=== PATIENT | female | born 1980 | race Caucasian/White ===

== ENCOUNTER 2016-09-16 15:12 | Emergency (ER) | payer OTHER, SELFPAY ==
[2016-09-16 16:23] VITALS: O2SAT 98
[2016-09-16] MEDS ORDERED: Sodium Chloride 0.9% 1,000 ML IV ONE (18:55)
[2016-09-16] MEDS ORDERED: Sodium Chloride 0.9% 1,000 ML ONE (19:37)
[2016-09-16 19:38] LABS: BASO % 0.6 % (0.0-2.0); EOS # 0.1 K/uL (0.0-0.7); EOS % 1.2 % (0.0-4.0); HEMATOCRIT 37.2 % (34.0-47.0); LYMPH # 2.4 K/uL (1.0-4.3); LYMPH % 27.7 % (20.0-40.0); MEAN CORPUSCULAR HEMOGLOBIN 30.6 pg (27.0-31.0); MEAN CORPUSCULAR HGB CONC 33.2 g/dL (33.0-37.0); MEAN PLATELET VOLUME 8.3 fL (7.2-11.7); MONO # 0.7 K/uL (0.0-0.8); MONO % 7.7 % (0.0-10.0); NRBC % 0.1 % (0.0-2.0); RED CELL DISTRIBUTION WIDTH 12.8 % (11.5-14.5); WHITE BLOOD COUNT 8.8 K/uL (4.8-10.8)
[2016-09-16 19:43] LABS: CHLORIDE 99 mmol/L (98-107); POTASSIUM 3.7 mmol/L (3.6-5.2); SODIUM 139 mmol/L (132-148)
[2016-09-16 19:45] LABS: BILIRUBIN,TOTAL 0.3 mg/dL (0.2-1.3); GFR AFRICAN-AMERICAN > 60
[2016-09-16 19:46] LABS: ALB/GLOB RATIO 1.3 (1.0-2.1); ALKALINE PHOSPHATASE 40 U/L (38-126); ALT/SGPT 23 U/L (9-52); AST/SGOT 26 U/L (14-36); BLOOD UREA NITROGEN 9 mg/dL (7-17); CALCIUM 8.5 mg/dl (8.6-10.4); CARBON DIOXIDE 26 mmol/L (22-30); GLUCOSE,RANDOM 106 mg/dL (65-105); TOTAL PROTEIN 7.6 g/dL (6.3-8.3)
--- NOTE | 2016-09-16 20:17 | C.PDOC ---
Time Seen by Provider: 09/16/16 18:47 Chief Complaint (Nursing): Chest Pain History Per: Patient, Family Onset/Duration Of Symptoms: Days (1) Current Symptoms Are (Timing): Still Present Severity: Moderate Associated Symptoms: Nausea (and vomiting). denies: Dyspnea, Diaphoresis, Syncope Modifying Factors: Other Indicated Below Alleviating Factors: None Additional History Per: Prior Records Past Medical History Reviewed: Historical Data, Nursing Documentation, Vital Signs Vital Signs: Last Vital Signs Temp 98.1 F 09/16/16 16:21 Pulse 68 09/16/16 18:46 Resp 18 09/16/16 16:21 BP 122/72 09/16/16 16:21 Pulse Ox 98 09/16/16 16:21 - Medical History PMH: Asthma, Pneumonia Surgical History: Appendectomy Family History: States: Unknown Family Hx - Social History Hx Tobacco Use: No Hx Alcohol Use: No Hx Substance Use: No - Immunization History Hx Tetanus Toxoid Vaccination: No Hx Influenza Vaccination: No Hx Pneumococcal Vaccination: No Review Of Systems Except As Marked, All Systems Reviewed And Found Negative. Constitutional: Negative for: Fever, Weakness Cardiovascular: Positive for: Chest Pain Respiratory: Negative for: Shortness of Breath, Hemoptysis Gastrointestinal: Positive for: Nausea, Vomiting. Negative for: Abdominal Pain , Diarrhea, Constipation, Melena, Hematochezia, Hematemesis Genitourinary: Negative for: Dysuria Musculoskeletal: Negative for: Neck Pain, Back Pain, Leg Pain Skin: Negative for: Rash Neurological: Negative for: Weakness, Numbness, Seizures, Altered Mental Status , Headache Physical Exam - Physical Exam Appears: Non-toxic, No Acute Distress Skin: Normal Color, Warm, Dry, No Rash Head: Atraumatic, Normacephalic Eye(s): bilateral: PERRL, EOMI Neck: Normal ROM, Supple Chest: Symmetrical, No Deformity, No Subcutaneous Emphysema Cardiovascular: Rhythm Regular Respiratory: Normal Breath Sounds, No Accessory Muscle Use Gastrointestinal/Abdominal: Soft, No Tenderness Back: No CVA Tenderness Extremity: Normal ROM, No Pedal Edema, No Calf Tenderness Neurological/Psych: Oriented x3, Normal Motor, Normal Sensation ED Course And Treatment - Laboratory Results Result Diagrams: 09/16/16 19:32 09/16/16 19:32 Lab Interpretation: No Acute Changes Urine POC: Negative ECG: Interpreted By Me, Viewed By Me ECG Rhythm: Sinus Rhythm ECG Interpretation: No Acute Changes Rate From EC O2 Sat by Pulse Oximetry: 98 Pulse Ox Interpretation: Normal - Radiology CXR: Interpreted by Me, Viewed By Me CXR Interpretation: Yes: No Acute Disease Progress Note: Symptoms resolved after meds. Reassessment Condition: Improved Progress - Interventions Interventions:: Observation, Intravenous fluid - Medications Administered Intravenous: Antiemetic, H-2 portia - Data Reviewed Data Reviewed: Lab, Diagnostic imaging, EKG, Old records - Patient Status Patient status: Mostly improved - Continuity of Care Discussed patient case with:: Patient, Family-HIPPA compliant, ED Nurse - Patient Plan Patient Plan: Discharge, F/U with PCP Medical Decision Making Medical Decision Making: PERC rule negative Disposition Counseled Patient/Family Regarding: Studies Performed, Diagnosis, Need For Followup, Rx Given - Disposition Referrals: [facility] at [facility] [Outside] Disposition: HOME/ ROUTINE Disposition Time: 20:18 Condition: IMPROVED Additional Instructions: Follow up in the clinic for further evaluation and treatment. Return to the ER if you develop shortness of breath, fever, abdominal pain, dizziness, worsening of symptoms or if you have any other concerns. Prescriptions: Famotidine [Pepcid] 20 mg PO BID #30 tab Instructions: Gastroesophageal Reflux Disease (ED) Print Language: SYRIAN - Clinical Impression Clinical Impression: Chest pain, Vomiting
[2016-09-16 20:32] VITALS: BP 104/68; PULSE 74; RESP 16; TEMP 98.9
--- NOTE | 2016-09-17 09:52 | RAD ---
HISTORY: Chest pain COMPARISON: Comparison is made to the previous study dated 03/03/2020 TECHNIQUE: Chest PA and lateral FINDINGS: LUNGS: No active pulmonary disease. PLEURA: No significant pleural effusion identified. No pneumothorax apparent. CARDIOVASCULAR: Normal. OSSEOUS STRUCTURES: No significant abnormalities. VISUALIZED UPPER ABDOMEN: Normal. OTHER FINDINGS: None. IMPRESSION: No active disease.
--- NOTE | 2016-09-24 12:18 | CARD ---
APPROVED REPORT EKG Measurement Heart [id number] <Conclusion> Normal sinus rhythm Normal ECG
== END 2016-09-16 20:31 | disposition home or self-care (01) ==
LOC: C.ER 15:12
DX: R07.9 Chest pain, unspecified (principal)
CPT/HCPCS: 71020; 80053; 83690; 84484; 84703; 85025; 93005; 96361; 96374; 96375; 99284; G0480; J2765; J7040

== ENCOUNTER 2016-12-05 22:35 | Emergency (ER) | payer SELFPAY ==
[2016-12-05 23:01] VITALS: BP 138/77; PULSE 92; RESP 18; TEMP 98.3; O2SAT 97
[2016-12-05] MEDS ORDERED: Oxycodone/Acetaminophen 5/325 mg Tab PO STA (23:08)
[2016-12-05] MEDS ORDERED: Oxycodone/Acetaminophen 5/325 mg Tab ONE (23:10)
--- NOTE | 2016-12-05 23:42 | C.PDOC ---
History Of Present Illness 36 y/o female c/o left wrist pain status post trip and fall in the kitchen earlier today. Denies changes in sensation. Patient notes she is left hand dominant. Time Seen by Provider: 12/05/16 22:57 Chief Complaint (Nursing): Finger,Hand,&Wrist History Per: Patient History/Exam Limitations: no limitations Onset/Duration Of Symptoms: Hrs Current Symptoms Are (Timing): Still Present Quality: "Pain" Exacerbating Factor(s): Movement Recent travel outside of the [place]: No Past Medical History Reviewed: Historical Data, Nursing Documentation, Vital Signs Vital Signs: Last Vital Signs Temp 98.3 F 12/05/16 22:57 Pulse 92 H 12/05/16 22:57 Resp 18 12/05/16 22:57 BP 138/77 12/05/16 22:57 Pulse Ox 97 12/06/16 00:05 - Medical History PMH: Asthma, Pneumonia Surgical History: Appendectomy Family History: States: Unknown Family Hx - Social History Hx Tobacco Use: No Hx Alcohol Use: Yes Hx Substance Use: No - Immunization History Hx Tetanus Toxoid Vaccination: No Hx Influenza Vaccination: No Hx Pneumococcal Vaccination: No Review Of Systems Except As Marked, All Systems Reviewed And Found Negative. Constitutional: Negative for: Fever, Chills Musculoskeletal: Positive for: Other (left wrist pain ) Skin: Negative for: Rash Neurological: Negative for: Weakness, Numbness Physical Exam - Physical Exam Appears: Non-toxic, No Acute Distress Skin: Normal Color, Warm, Dry Head: Atraumatic, Normacephalic Eye(s): bilateral: Normal Inspection, EOMI Nose: Normal Oral Mucosa: Moist Extremity: Tenderness (tenderness to dorsal aspect of left wrist), Capillary Refill (< 2 sec. ), No Deformity, No Swelling, Other (decreased ROM left wrist secondary to pain ) Extremity: Bilateral: Normal Color And Temperature Pulses: Left Radial: Normal, Right Radial: Normal Neurological/Psych: Oriented x3, Normal Speech, Normal Cognition, Normal Motor, Normal Sensation ED Course And Treatment O2 Sat by Pulse Oximetry: 97 (RA) Pulse Ox Interpretation: Normal - Other Rad Left Wrist XR X-Ray: Interpreted by Me Interpretation: negative for fx or dislocation Progress Note: Treated with Percocet. Left wrist x-ray ordered and reviewed, negative for fx or dislocation. Wrist immobilizer applied by CP. Pt neurovascularly intact on re-evaluation, radial pulses normal. Instructed RICE and follow up with ortho. . Disposition - Disposition Referrals: Morgan Joel MD [Staff Provider] - Disposition: HOME/ ROUTINE Disposition Time: 23:40 Condition: STABLE Additional Instructions: Rest, ice and elevate the area. Follow up with bone doctor in 1-2 days for re- evaluation. Descansar, hielo y elevar el cesar. Seguir con el mdico de huesos en 1-2 magdaleno para la re-evaluacin. 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 - Scribe Statement The provider has reviewed the documentation as recorded by the Scribe Pedro Fitch All medical record entries made by the Scribe were at my direction and personally dictated by me. I have reviewed the chart and agree that the record accurately reflects my personal performance of the history, physical exam, medical decision making, and the department course for this patient. I have also personally directed, reviewed, and agree with the discharge instructions and disposition.
--- NOTE | 2016-12-06 10:13 | RAD ---
Left wrist three views History: Trauma. Comparison: None available. Findings: No evidence of acute displaced fracture or dislocation. Impression: Negative acute. If pain persists, consider MRI.
== END 2016-12-06 00:10 | disposition home or self-care (01) ==
LOC: C.ER 22:35
DX: S63.502A Unspecified sprain of left wrist, initial encounter (principal); W01.0XXA Fall on same level from slipping, tripping and stumbling without subsequent striking against object, initial encounter; Y92.000 Kitchen of unspecified non-institutional (private) residence as the place of occurrence of the external cause

== ENCOUNTER 2016-12-22 15:32 | Emergency (ER) | payer OTHER ==
[2016-12-22 15:47] VITALS: RESP 18; TEMP 98.1; BMI 30.7
[2016-12-22] MEDS ORDERED: Albuterol 0.083% Inhal Sol (2.5 mg/3 mL) UD INH STA (16:02)
[2016-12-22] MEDS ORDERED: Sodium Chloride 0.9% 500 ML IV ONE (16:02)
--- NOTE | 2016-12-22 16:40 | C.PDOC ---
History Of Present Illness 36 y/o female hx of asthma presents to the ED with complaints of cough with green sputum, loss of voice and sore throat x5 days. Denies fever, chills, cp , sob, wheezing. or any other complaints. No sick contacts, nonsmoker. Time Seen by Provider: 12/22/16 15:56 Chief Complaint (Nursing): ENT Problem History Per: Patient History/Exam Limitations: no limitations Onset/Duration Of Symptoms: Days Current Symptoms Are (Timing): Still Present Location Of Pain: Throat Sick Contacts (Context): None Associated Symptoms: Sore Throat, Cough. denies: Fever, Chills Severity: Mild Recent travel outside of the [place]: No Past Medical History Reviewed: Historical Data, Nursing Documentation, Vital Signs Vital Signs: Last Vital Signs Temp 98.1 F 12/22/16 15:45 Pulse 75 12/22/16 16:48 Resp 18 12/22/16 16:48 BP 128/75 12/22/16 16:48 Pulse Ox 99 12/22/16 22:07 - Medical History PMH: Asthma, Pneumonia Surgical History: Appendectomy Family History: States: Unknown Family Hx - Social History Hx Tobacco Use: No Hx Alcohol Use: No Hx Substance Use: No - Immunization History Hx Tetanus Toxoid Vaccination: No Hx Influenza Vaccination: No Hx Pneumococcal Vaccination: No Review Of Systems Constitutional: Negative for: Fever, Chills ENT: Positive for: Throat Pain Cardiovascular: Negative for: Chest Pain, Palpitations Respiratory: Positive for: Cough, Sputum (green). Negative for: Shortness of Breath Gastrointestinal: Negative for: Nausea, Vomiting, Abdominal Pain Physical Exam - Physical Exam Appears: Non-toxic, No Acute Distress Skin: Warm, Dry, No Rash Head: Atraumatic, Normacephalic Ear(s): Bilateral: Normal Nose: Normal, No Discharge Oral Mucosa: Moist Tongue: Normal Appearing Throat: Normal, No Erythema, No Exudate, Other (voice hoarse, no tracheal tenderness) Neck: Normal, Normal ROM, Supple Lymphatic: No Adenopathy Chest: No Tenderness Cardiovascular: Rhythm Regular, No Murmur Respiratory: Decreased Breath Sounds (left base), No Rales, No Rhonchi, No Wheezing Gastrointestinal/Abdominal: Normal Exam, Soft, No Tenderness Neurological/Psych: Oriented x3, Normal Speech ED Course And Treatment O2 Sat by Pulse Oximetry: 99 (RA) Pulse Ox Interpretation: Normal Medical Decision Making Medical Decision Making: pt with hx asthma, c/o dec voice with sore throat, cough green sputum, x 5 days. , no fever. will d/c with zpak and albuterol mdi, f/u med clinic. Disposition Counseled Patient/Family Regarding: Diagnosis, Need For Followup, Rx Given - Disposition Referrals: [facility] at [facility] [Outside] Disposition: HOME/ ROUTINE Disposition Time: 16:40 Condition: GOOD Additional Instructions: Paxton grgaras con agua salada caliente 3-4 veces al da. Bajadero los antibiticos segn lo prescrito. Puede utilizar Tylenol o ibuprofen para el dolor o la fiebre. Utilizar el inhalador del albutrol 2 inhalaciones cada 6 horas para la opresin de pecho. Tos marshall o falta de aliento. Seguimiento en la [place] M dica en 1-2 magdaleno. Vuelva al ER para cualquier empeoramiento de los sntomas. Susurro no recomendado ;. Sugerencia de descanso de voz. Prescriptions: Albuterol HFA [Ventolin HFA 90 mcg/actuation (8 g)] 2 puff IH Q6 #1 inhaler Azithromycin [Z-Jason] 250 mg PO DAILY #6 tab Instructions: Laryngitis (ED), Upper Respiratory Infection (ED) Print Language: BELGIAN - Clinical Impression Clinical Impression: Laryngitis, Upper respiratory infection - PA / RESPIRATORY THERAPY TECHNICIAN / Resident Statement MD/DO has reviewed & agrees with the documentation as recorded. - Scribe Statement The provider has reviewed the documentation as recorded by the Vania Amin All medical record entries made by the Vania were at my direction and personally dictated by me. I have reviewed the chart and agree that the record accurately reflects my personal performance of the history, physical exam, medical decision making, and the department course for this patient. I have also personally directed, reviewed, and agree with the discharge instructions and disposition.
[2016-12-22 16:48] VITALS: BP 128/75; PULSE 75
[2016-12-22 16:54] VITALS: O2SAT 99
== END 2016-12-22 16:50 | disposition home or self-care (01) ==
LOC: C.ER 15:32
DX: J04.0 Acute laryngitis (principal); J02.9 Acute pharyngitis, unspecified

== ENCOUNTER 2017-02-24 16:03 | Emergency (ER) | payer OTHER ==
[2017-02-24 16:04] VITALS: BMI 30.7
[2017-02-24 16:49] VITALS: O2SAT 98
[2017-02-24] MEDS ORDERED: Albuterol-Ipratrop 3 mg / 0.5 (3 ml) UD ONE ×2 (17:15→17:27)
[2017-02-24] MEDS ORDERED: Albuterol 0.083% Inhal Sol (2.5 mg/3 mL) UD INH STA (17:37)
[2017-02-24] MEDS ORDERED: Albuterol 0.083% Inhal Sol (2.5 mg/3 mL) UD IH STA ×2 (17:38)
--- NOTE | 2017-02-24 17:38 | C.PDOC ---
History Of Present Illness 36 y/o female, with PMHx of Asthma, presents to the ED for evaluation of cough that is productive of green phlegm which has been worsening for the past 4 days. Patient notes her symptoms have been ongoing for approx 2 months and reports shortness of breath as well as trouble sleeping due to her symptoms. Patient was unable to find relief from using Ventolin inhaler. Patient denies fever, chills, chest pain, hemoptysis. Time Seen by Provider: 02/24/17 16:50 Chief Complaint (Nursing): Cough, Cold, Congestion History Per: Patient History/Exam Limitations: no limitations Onset/Duration Of Symptoms: Days, Persistent (around 2 months ) Current Symptoms Are (Timing): Worse Associated Symptoms: Cough, Sputum (green ). denies: Fever, Chills Ear Symptoms: Bilateral: None Severity: Mild Additional History Per: Patient Past Medical History Reviewed: Historical Data, Nursing Documentation, Vital Signs Vital Signs: Last Vital Signs Temp 97.5 F L 02/24/17 18:39 Pulse 93 H 02/24/17 18:39 Resp 18 02/24/17 18:39 BP 114/80 02/24/17 18:39 Pulse Ox 98 02/24/17 23:32 - Medical History PMH: Asthma, Pneumonia Surgical History: Appendectomy Family History: States: No Known Family Hx - Social History Hx Tobacco Use: No Hx Alcohol Use: No Hx Substance Use: No - Immunization History Hx Tetanus Toxoid Vaccination: No Hx Influenza Vaccination: No Hx Pneumococcal Vaccination: No Review Of Systems Except As Marked, All Systems Reviewed And Found Negative. Constitutional: Negative for: Fever, Chills Cardiovascular: Negative for: Chest Pain, Palpitations Respiratory: Positive for: Cough, Shortness of Breath, Sputum (green) Gastrointestinal: Negative for: Nausea, Vomiting, Abdominal Pain, Diarrhea Skin: Negative for: Rash Physical Exam - Physical Exam Appears: Well, Non-toxic, No Acute Distress, Other (speaking in full sentences) Skin: Normal Color, Warm, Dry, No Rash Eye(s): bilateral: Normal Inspection Oral Mucosa: Moist Throat: Normal, No Erythema, No Exudate Neck: Supple Chest: Symmetrical, No Tenderness Cardiovascular: Rhythm Regular Respiratory: No Accessory Muscle Use, No Rales, No Rhonchi, Wheezing ( expiratory wheezing B/L) Back: Normal Inspection Extremity: Normal ROM, No Pedal Edema, No Calf Tenderness Neurological/Psych: Oriented x3 Gait: Steady ED Course And Treatment O2 Sat by Pulse Oximetry: 98 (on RA) Pulse Ox Interpretation: Normal - Other Rad CXR X-Ray: Interpreted by Me, Viewed By Me Interpretation: no infiltrates/effusions Progress Note: Patient given PO Prednisone, nebulizer treatments. CXR ordered and reviewed - negative for infiltrates. Due to asthma history, patient treated with PO Azithromycin. Reevaluation Time: 18:45 Reassessment Condition: Improved (On reassessment, patient states she feels significantly better. On exam, she has good air entry B/L without wheezing/ accessory muscle use. Peak flow done by me is 300 (markedly improved). Pox 98 % on RA. Patient given Rxs for prednisone, azithromycin, tessalon and albuterol inhaler. She was instructed to follow up with PMD/clinic in 1-2 days , and understands she should return to ED if symptoms worsen.) Disposition Counseled Patient/Family Regarding: Studies Performed, Diagnosis, Need For Followup, Rx Given - Disposition Referrals: [facility] at [facility] [Outside] Disposition: HOME/ ROUTINE Disposition Time: 18:45 Condition: STABLE Additional Instructions: SEGUIMIENTO CON LOREDO DOCTOR / CLNICA EN 1-2 [place] USE [employer] SEGN LO DIRIGIDO DEVUELVA A LA SONALI DE EMERGENCIA SI LOS SNTOMAS EMPEORARAN Prescriptions: Albuterol HFA [Ventolin HFA 90 mcg/actuation (8 g)] 0.09 mg IH Q4 PRN #1 puff PRN Reason: Wheezing Azithromycin [Zithromax] 250 mg PO DAILY #4 tab Benzonatate [Tessalon Perles] 100 mg PO BID PRN #15 sgl PRN Reason: Cough predniSONE [predniSONE Tab] 60 mg PO DAILY #12 tab Instructions: Asthma (ED), Acute Bronchitis (ED) Forms: [employer] (Frisian) Print Language: ALBANIAN - POA Present On Arrival: None - Clinical Impression Clinical Impression: Asthma, Bronchitis - Scribe Statement The provider has reviewed the documentation as recorded by the Scribe (Esther Baires) Provider Attestation: All medical record entries made by the Scribe were at my direction and personally dictated by me. I have reviewed the chart and agree that the record accurately reflects my personal performance of the history, physical exam, medical decision making, and the department course for this patient. I have also personally directed, reviewed, and agree with the discharge instructions and disposition.
[2017-02-24 18:40] VITALS: BP 114/80; PULSE 93; RESP 18; TEMP 97.5
--- NOTE | 2017-02-24 18:40 | RAD ---
PROCEDURE: CHEST RADIOGRAPH, 1 VIEW HISTORY: Shortness of breath COMPARISON: 09/16/2016 FINDINGS: LUNGS: Mild venous congestion. Right infrahilar prominence. PLEURA: No pneumothorax or pleural fluid seen. CARDIOVASCULAR: Normal. OSSEOUS STRUCTURES: No significant abnormalities. VISUALIZED UPPER ABDOMEN: Normal. OTHER FINDINGS: None. IMPRESSION: Mild venous congestion. Right infrahilar prominence.
== END 2017-02-24 18:54 | disposition home or self-care (01) ==
LOC: C.ER 16:03
DX: J45.909 Unspecified asthma, uncomplicated (principal)

== ENCOUNTER 2017-02-27 16:17 | Emergency (ER) | payer OTHER ==
[2017-02-27 16:17] VITALS: BMI 30.7
[2017-02-27 16:26] VITALS: TEMP 97.7
--- NOTE | 2017-02-27 18:08 | C.PDOC ---
History Of Present Illness 36 y/o female, with PMHx of asthma, presents to the ED for evaluation of shortness of breath and cough which worsened earlier today. Earlier today at home, patient began coughing, experiencing shortness of breath, and had difficulty speaking. She also feels weakness when trying to speak, mild headache , nausea, and anterior chest wall pain which is worse when coughing. Patient was seen in [facility] on 02/24. She underwent CXR during her visit, which was unremarkable. Patient was discharged with Rx Zithromax. Patient notes she feels tremulous (probably caused by medication). Patient denies fever, chills, abdominal pain. Time Seen by Provider: 02/27/17 17:45 Chief Complaint (Nursing): Shortness Of Breath History Per: Patient History/Exam Limitations: no limitations Onset/Duration Of Symptoms: Days Current Symptoms Are (Timing): Still Present Quality: denies: "Pain" Current Respiratory Medications: See Home Med List Associated Symptoms: Chest Pain (associated with cough ), Productive Cough. denies: Fever, Chills Additional History Per: Patient Past Medical History Reviewed: Historical Data, Nursing Documentation, Vital Signs Vital Signs: Last Vital Signs Temp 97.7 F 02/27/17 16:22 Pulse 61 02/27/17 18:29 Resp 18 02/27/17 18:29 BP 101/58 L 02/27/17 18:29 Pulse Ox 98 02/27/17 18:49 - Medical History PMH: Asthma, Pneumonia Denies: Pancreatitis, Chronic Kidney Disease Surgical History: Appendectomy Family History: States: Unknown Family Hx - Social History Hx Tobacco Use: No Hx Alcohol Use: No Hx Substance Use: No - Immunization History Hx Tetanus Toxoid Vaccination: No Hx Influenza Vaccination: No Hx Pneumococcal Vaccination: No Review Of Systems Constitutional: Positive for: Weakness. Negative for: Fever, Chills Cardiovascular: Positive for: Chest Pain (worse with cough ) Respiratory: Positive for: Cough, Shortness of Breath, Sputum Gastrointestinal: Positive for: Nausea. Negative for: Abdominal Pain Neurological: Positive for: Headache (mild) Physical Exam - Physical Exam Appears: Non-toxic, No Acute Distress Skin: Normal Color, Warm, Dry Head: Atraumatic, Normacephalic Eye(s): bilateral: Normal Inspection Oral Mucosa: Moist Neck: Supple Chest: Symmetrical, No Deformity, No Tenderness Cardiovascular: Rhythm Regular, No Murmur Respiratory: Normal Breath Sounds, No Rales, No Rhonchi, No Wheezing Gastrointestinal/Abdominal: Soft, No Tenderness, No Guarding, No Rebound Back: Normal Inspection Extremity: Normal ROM, Capillary Refill (less than 2 seconds ) Neurological/Psych: Oriented x3, Normal Speech, Normal Cognition Gait: Steady ED Course And Treatment O2 Sat by Pulse Oximetry: 98 Medical Decision Making Medical Decision Making: Impression: 35 y/o female with cough Progress: On reassessment, patient is resting comfortably, showing on signs of respiratory distress and is stable for discharge. Patient is advised to continue taking her medicine as prescribed and follow up with her PMD within 1- 2 days for further evaluation. Disposition - Disposition Referrals: [facility] at [facility] [Outside] Disposition: HOME/ ROUTINE Disposition Time: 18:40 Condition: STABLE Instructions: Asthma (ED) Forms: Gen Discharge Inst Bhutanese, [employer] (Bhutanese) - POA Present On Arrival: None - Clinical Impression Clinical Impression: Cough - Scribe Statement The provider has reviewed the documentation as recorded by the Scribe (Esther Baires) Provider Attestation: All medical record entries made by the Scribe were at my direction and personally dictated by me. I have reviewed the chart and agree that the record accurately reflects my personal performance of the history, physical exam, medical decision making, and the department course for this patient. I have also personally directed, reviewed, and agree with the discharge instructions and disposition.
[2017-02-27 18:32] VITALS: BP 101/58; PULSE 61; RESP 18
[2017-02-27 18:40] VITALS: O2SAT 98
== END 2017-02-27 18:49 | disposition home or self-care (01) ==
LOC: C.ER 16:17
DX: R05 Cough (principal)

== ENCOUNTER 2018-04-02 16:12 | Emergency (ER) | payer OTHER ==
[2018-04-02 16:13] VITALS: BMI 30.7
[2018-04-02 16:29] VITALS: BP 111/68; PULSE 67; RESP 17; TEMP 98.5; O2SAT 98
[2018-04-02] MEDS ORDERED: Lidocaine 5% Patch TD STA (17:06)
--- NOTE | 2018-04-02 17:14 | C.PDOC ---
History Of Present Illness 37 y/o female presents to the ER for evaluation of lower back pain which has been present since last night. Patient states that the pain is worse with movement. Patient reports that she has history of similar episode 2 years ago. Denies having urinary frequency, dysuria, urinary or bowel incontinence, changes in sensation, and weakness. Time Seen by Provider: 04/02/18 16:32 Chief Complaint (Nursing): Back Pain History Per: Patient History/Exam Limitations: no limitations Onset/Duration Of Symptoms: Days Current Symptoms Are (Timing): Still Present Past Medical History Reviewed: Historical Data, Nursing Documentation, Vital Signs Vital Signs: Last Vital Signs Temp 98.5 F 04/02/18 16:27 Pulse 67 04/02/18 16:27 Resp 17 04/02/18 16:27 BP 111/68 04/02/18 16:27 Pulse Ox 98 04/02/18 16:27 - Medical History PMH: Asthma, Pneumonia Denies: Pancreatitis, Chronic Kidney Disease Surgical History: Appendectomy Family History: States: No Known Family Hx - Social History Hx Tobacco Use: No Hx Alcohol Use: Yes Hx Substance Use: No - Immunization History Hx Tetanus Toxoid Vaccination: No Hx Influenza Vaccination: No Hx Pneumococcal Vaccination: No Review Of Systems Except As Marked, All Systems Reviewed And Found Negative. Genitourinary: Negative for: Frequency, Incontinence Musculoskeletal: Positive for: Back Pain (lower back pain) Neurological: Negative for: Weakness, Numbness Physical Exam - Physical Exam Appears: Non-toxic, No Acute Distress Skin: Normal Color, Warm, Dry Head: Atraumatic, Normacephalic Eye(s): bilateral: Normal Inspection, EOMI Nose: Normal Oral Mucosa: Moist Neck: Normal ROM, Supple Chest: Symmetrical Cardiovascular: Rhythm Regular Respiratory: Normal Breath Sounds, No Rales, No Rhonchi, No Wheezing Back: No CVA Tenderness, No Vertebral Tenderness, Paraspinal Tenderness (b/ l paralumbar tenderness) Extremity: Normal ROM, Tenderness (parasacral tenderness), No Swelling Neurological/Psych: Oriented x3, Normal Speech, Normal Motor, Normal Sensation (no saddle anesthesia) Gait: Steady ED Course And Treatment O2 Sat by Pulse Oximetry: 98 (RA) Pulse Ox Interpretation: Normal - Other Rad [id number] Spine X-Ray: Interpreted by Me, Viewed By Me Interpretation: no fx or dislocation Progress Note: Patient treated with Toradol IV and Lidoderm patch. X-Ray- Lumbar Spine, UA and HCG Qual. ordered. On reassessment, patient is resting comfortably, with improvement of back pain. Patient remains afebrile, with no bony tenderness, extremity numbness or weakness, or abdominal pain. Patient is ambulatory in the emergency department with no signs of discomfort. Patient was advised to follow up with physician/clinic in 1-2 days. UA shows no signs UTI. XR no acute changes . Disposition - Disposition Disposition: HOME/ ROUTINE Disposition Time: 17:51 Condition: STABLE Additional Instructions: Vaya a rhoades mdico o la clnica en 2-5 magdaleno sin falta, para mas evaluacin. Taloga los medicamentos jazmin indicado. Volver a la owen de emergencia en cualquier momento si los sntomas persisten o empeoran. Prescriptions: Cyclobenzaprine [Flexeril] 5 mg PO BID PRN #14 tab PRN Reason: Muscle Spasm Naproxen [Naprosyn] 1 tab PO BID PRN #20 tab PRN Reason: Pain Instructions: Low Back Pain (DC) Forms: [id number] (Yakut), Work Excuse Print Language: IRAQI - Clinical Impression Clinical Impression: Low back pain - PA / TYRE FINISHER AND EXAMINER / Resident Statement MD/DO has reviewed & agrees with the documentation as recorded. - Scribe Statement The provider has reviewed the documentation as recorded by the Scribe Ken Del Rosario Provider Attestation All medical record entries made by the Scribe were at my direction and personally dictated by me. I have reviewed the chart and agree that the record accurately reflects my personal performance of the history, physical exam, medical decision making, and the department course for this patient. I have also personally directed, reviewed, and agree with the discharge instructions and disposition.
[2018-04-02 17:27] LABS: SQUAMOUS EPITHIAL 3 /hpf (0-5); URINE BACTERIA RARE (<OCC); URINE BILIRUBIN NEGATIVE (NEGATIVE); URINE BLOOD NEGATIVE (NEGATIVE); URINE CLARITY Clear (Clear); URINE COLOR Yellow (YELLOW); URINE GLUCOSE (UA) NORMAL (Normal); URINE LEUKOCYTE ESTERASE NEG Leu/uL (Negative); URINE PROTEIN NEGATIVE (NEGATIVE)
[2018-04-02 17:28] LABS: HCG,QUALITATIVE URINE NEGATIVE (NEGATIVE)
[2018-04-02] MEDS ORDERED: Lidocaine 5% Patch TD ONE (17:39)
--- NOTE | 2018-04-02 18:58 | RAD ---
Date of service: 04/02/2018 PROCEDURE: Radiographs of the Lumbar Spine. HISTORY: pain COMPARISON: No prior. FINDINGS: BONES: Mild curvature of the lumbar spine convex to the left. No listhesis. No acute displaced fracture. Midline bony defect of the posterior arch at L5 likely related to spina bifida occulta. Facet hypertrophy. DISC SPACES: Intervertebral disc space narrowing at L4-L5. OTHER FINDINGS: Moderate constipation. IMPRESSION: Mid evidence of midline bony defect of the posterior arch at L5 likely related to spina bifida occulta. If indicated, cross-sectional imaging may be considered for further evaluation. Intervertebral disc space narrowing at L4-L5. Facet hypertrophy. Moderate constipation.
== END 2018-04-02 18:01 | disposition home or self-care (01) ==
LOC: C.ER 16:12
DX: M54.5 Low back pain (principal)
CPT/HCPCS: 72100; 81001; 84703; 87086; 96372; 99284; J1885

== ENCOUNTER 2018-09-01 17:44 | Emergency (ER) | payer OTHER ==
[2018-09-01 17:45] VITALS: BMI 30.7
[2018-09-01] MEDS ORDERED: Naproxen 550 mg Tab PO STA (19:38)
--- NOTE | 2018-09-01 20:00 | C.PDOC ---
History Of Present Illness 37 year old female with PMHx of asthma presents to ED with complaint of generalized, vague chest pain for the past 2 days. Patient states that the pain was initially diffuse and non-radiating. She states that the previous night the pain became sharp and radiated to her back. She also complains of generalized weakness for the past 2 weeks. Patient currently has no PMD. She denies SOB, nausea, and vomiting. Janitor Head (#:[id number]). Time Seen by Provider: 09/01/18 19:16 Chief Complaint (Nursing): Chest Pain History Per: Patient, Receiving Inspector (#[id number]) History/Exam Limitations: no limitations Onset/Duration Of Symptoms: Days (2) Current Symptoms Are (Timing): Still Present Quality: Sharp, "Pain" Associated Symptoms: denies: Nausea, Dyspnea, Diaphoresis Modifying Factors: None Exacerbating Factors: None Alleviating Factors: None Past Medical History Reviewed: Historical Data, Nursing Documentation, Vital Signs Vital Signs: Last Vital Signs Temp 97.7 F 09/01/18 18:01 Pulse 63 09/01/18 18:44 Resp 11 L 09/01/18 18:44 BP 141/85 09/01/18 18:44 Pulse Ox 96 09/01/18 18:44 - Medical History PMH: Asthma, Pneumonia Denies: Pancreatitis, Chronic Kidney Disease Surgical History: Appendectomy Family History: States: Unknown Family Hx - Social History Hx Tobacco Use: No Hx Alcohol Use: Yes Hx Substance Use: No - Immunization History Hx Tetanus Toxoid Vaccination: No Hx Influenza Vaccination: No Hx Pneumococcal Vaccination: No Review Of Systems Constitutional: Positive for: Weakness. Negative for: Fever, Chills Cardiovascular: Positive for: Chest Pain. Negative for: Palpitations Respiratory: Negative for: Cough, Shortness of Breath Gastrointestinal: Negative for: Nausea, Vomiting Neurological: Negative for: Weakness, Numbness, Dizziness Physical Exam - Physical Exam Appears: Well, Non-toxic, No Acute Distress Skin: Normal Color, Warm, Dry Head: Atraumatic, Normacephalic Eye(s): bilateral: Normal Inspection, PERRL, EOMI Oral Mucosa: Moist Neck: Normal ROM, Supple Chest: Symmetrical, No Deformity Cardiovascular: Rhythm Regular, No Murmur Respiratory: No Accessory Muscle Use, No Rales, No Rhonchi, No Wheezing Gastrointestinal/Abdominal: Soft, No Tenderness Extremity: Capillary Refill (<2 seconds) Extremity: Bilateral: Atraumatic, Normal Color And Temperature, Normal ROM Neurological/Psych: Oriented x3, Normal Speech, Normal Cognition ED Course And Treatment - Laboratory Results Result Diagrams: 09/01/18 19:58 09/01/18 19:58 O2 Sat by Pulse Oximetry: 96 (in RA) Medical Decision Making Medical Decision Making: Impression: 37 year old female with generalized, vague chest pain. Plan: BMP Troponin CBC CXR EKG Naproxen PO Flu a/b swab MDM: Work up for chest pain and weakness Low suspicion for cardiac etiology Labs with troponin, CXR, and EKG Reassess patient Re-Evaluation: Chest pain resolved Labs unremarkable CXR normal Flu a/b swab negative Recommended outpatient clinic Prescription given for Tylenol and Motrin for pain Disposition - Disposition Disposition: HOME/ ROUTINE Disposition Time: 21:16 Condition: IMPROVED Forms: [facility] (Sinhala) - Clinical Impression Clinical Impression: Chest discomfort - Scribe Statement The provider has reviewed the documentation as recorded by the Scribe (Sydnee Peña) All medical record entries made by the Scribe were at my direction and personally dictated by me. I have reviewed the chart and agree that the record accurately reflects my personal performance of the history, physical exam, medical decision making, and the department course for this patient. I have also personally directed, reviewed, and agree with the discharge instructions and disposition.
[2018-09-01 20:03] LABS: BASO % 0.6 % (0.0-2.0); EOS # 0.1 K/uL (0.0-0.7); EOS % 1.2 % (0.0-4.0); HEMOGLOBIN 12.8 g/dL (11.0-16.0); LYMPH # 2.4 K/uL (1.0-4.3); LYMPH % 29.2 % (20.0-40.0); MEAN CELL VOLUME 93.9 fL (81.0-99.0); MEAN PLATELET VOLUME 7.9 fL (7.2-11.7); MONO # 0.5 K/uL (0.0-0.8); MONO % 6.4 % (0.0-10.0); NEUT # 5.2 K/uL (1.8-7.0); NEUT % 62.6 % (50.0-75.0); RBC 4.13 Mil/uL (3.80-5.20); RED CELL DISTRIBUTION WIDTH 12.7 % (11.5-14.5); WHITE BLOOD COUNT 8.3 K/uL (4.8-10.8)
[2018-09-01 20:15] LABS: BLOOD UREA NITROGEN 15 mg/dL (7-17); CALCIUM 9.2 mg/dl (8.6-10.4); GFR NON-AFRICAN AMERICAN > 60
[2018-09-01] MEDS ORDERED: Naproxen 550 mg Tab PO ONE (20:21)
[2018-09-01 21:42] VITALS: BP 136/77; PULSE 81; RESP 17; TEMP 97.8; O2SAT 99
--- NOTE | 2018-09-02 09:56 | RAD ---
Date of service: 09/01/2018 HISTORY: cough COMPARISON: 02/24/2017 TECHNIQUE: Chest PA and lateral FINDINGS: LUNGS: No consolidation. PLEURA: No significant pleural effusion identified. No pneumothorax apparent. CARDIOVASCULAR: No aortic atherosclerotic calcification present. Normal cardiac size. No significant appearing pulmonary venous congestion. OSSEOUS STRUCTURES: No significant abnormalities. VISUALIZED UPPER ABDOMEN: Normal. OTHER FINDINGS: None. IMPRESSION: Pathology noted. Specifically no consolidative pneumonia.
--- NOTE | 2018-09-02 18:55 | CARD ---
APPROVED REPORT Date of service: 09/01/2018 EKG Measurement Heart [id number] [id number] <Conclusion> Normal sinus rhythm with sinus arrhythmia Minimal voltage criteria for LVH, may be normal variant Poor R wave progression Abnormal ECG
== END 2018-09-01 21:42 | disposition home or self-care (01) ==
LOC: C.ER 17:44
DX: R07.89 Other chest pain (principal)